=== PATIENT | female | born 1995 | race Caucasian/White ===

== ENCOUNTER 2020-10-24 12:18 | Emergency (ER) | payer OTHER ==
[~2020-10-24] VITALS: Ht 162.6 cm; Wt 64.4 kg
[2020-10-24 12:20] VITALS: BP 138/95
--- NOTE | 2020-10-24 12:40 | NUR ---
PATIENT PRESENTS TO ED WITH RASH TO BILATERAL FOREARM, NECK AND EARS. PT STATES SHE TOOK BENADRYL AND IBUPROFEN . DENIES N/V/D; SKIN IS PINK/RED WITH RASHES; AAOX4 WITH EVEN AND STEADY GAIT; LUNGS CLEAR BL; HR EVEN AND REGULAR; PT DENIES ANY FEVER, CP, SOB, OR COUGH AT THIS TIME; PATIENT STATES PAIN OF 0/10 AT THIS TIME; VSS; PATIENT POSITIONED FOR COMFORT; HOB ELEVATED; BEDRAILS UP X2; BED DOWN. ER MD MADE AWARE OF PT STATUS.
[2020-10-24] MEDS ORDERED: predniSONE 20 MG TAB PO ONE (13:30)
[2020-10-24] MEDS ORDERED: PRED20TA5 PO (13:32)
[2020-10-24] MEDS ORDERED: DIPH25TA53 PO (13:32)
[2020-10-24 13:41] VITALS: BP 138/95
--- NOTE | 2020-10-24 13:42 | NUR ---
Patient discharged with v/s stable. Written and verbal after care instructions given and explained. Patient alert, oriented and verbalized understanding of instructions. Ambulatory with steady gait. All questions addressed prior to discharge. ID band removed. Patient advised to follow up with PMD. Rx of BENADRYL AND PREDNISONE given. Patient educated on indication of medication including possible reaction and side effects. Opportunity to ask questions provided and answered.
== END 2020-10-24 13:42 | disposition home or self-care (01) ==
LOC: MED 12:18
DX: L23.4 Allergic contact dermatitis due to dyes (principal)
CPT/HCPCS: 99283; J7512; Q0163

== ENCOUNTER 2022-04-07 09:24 | Emergency (ER) | payer MEDICAID, OTHER ==
[~2022-04-07] VITALS: Ht 162.6 cm; Wt 63.0 kg
[~2022-04-07 09:24] MED LIST: DIPH25TA53 PO; PRED20TA5 PO
[2022-04-07 09:28] VITALS: BP 144/89
[2022-04-07] MEDS ORDERED: ONDANSETRON 4 MG/2 ML VIAL IVP ONE (10:00)
[2022-04-07] MEDS ORDERED: NACL 0.9% 1,000 ML IV ONE (10:00)
[2022-04-07 10:25] LABS: BASOPHILS # (AUTO) 0.1 K/uL (0.00-0.22); BASOPHILS % (AUTO) 0.8 % (0.0-2.0); EOSINOPHILS # (AUTO) 0.3 K/uL (0-0.4); EOSINOPHILS % (AUTO) 3.8 % (0.0-4.0); HEMATOCRIT 43.4 % (36-48); LYMPHOCYTES % (AUTO) 29.7 % (20.5-51.1); MEAN CORPUSCULAR HEMOGLOBIN 30 pg (27-31); MEAN CORPUSCULAR HGB CONC 35 g/dL (33-37); MEAN CORPUSCULAR VOLUME 85.4 fL (80-94); MONOCYTES # (AUTO) 0.4 K/uL (0.8-1.0); MONOCYTES % (AUTO) 5.5 % (1.7-9.3); NEUTROPHILS % (AUTO) 60.2 % (42.2-75.2); PLATELET COUNT (AUTO) 230 K/uL (140-450); RED BLOOD CELL COUNT(AUTO) 5.08 MIL/uL (4.20-5.40); WHITE BLOOD COUNT (AUTO) 6.6 K/uL (4.8-10.8)
[2022-04-07 10:38] LABS: ALBUMIN 3.8 g/dL (3.4-5.0); ANION GAP 14.6 (8-16); ASPARTATE AMINOTRANSFERASE 13 U/L (15-37); CARBON DIOXIDE 25.4 mmol/L (21-32); CHLORIDE 106 mmol/L (98-107); CREATININE 0.7 mg/dL (0.6-1.3); GFR ARICAN-AMERICAN 132 mL/min (>90); GLUCOSE 89 mg/dL (74-106); SODIUM SERUM 142 mmol/L (136-145); TOTAL BILIRUBIN 0.4 mg/dL (0.0-1.0); UREA NITROGEN, BLOOD 6 mg/dL (7-18)
--- NOTE | 2022-04-07 11:11 | NUR ---
26/ PRESENTS TO ED WITH C/O COUGH AND DIZZINESS SINCE YESTERDAY, PATIENT REPORTS COUGHING UP BLOOD YESTERDAY. DENIES RECENT COLD SYMPTOMS, FEVERS, CHILLS OR SICK CONTACTS. TODAY PATIENT C/O EPISODES OF DIZZINESS AND NAUSEA, DENIES PAIN.
[2022-04-07 13:51] VITALS: BP 130/70
--- NOTE | 2022-04-07 13:55 | NUR ---
IV removed, catheter intact and site benign. Applied folded 4x4 gauze and tape to stop bleeding.
--- NOTE | 2022-04-07 13:55 | NUR ---
PATIENT LEFT WITHOUT PAPERWORK OR INSTRUCTIONS, DR ZAMORA AWARE
== END 2022-04-07 13:55 | disposition home or self-care (01) ==
LOC: MED 09:24
DX: R06.02 Shortness of breath (principal); R04.2 Hemoptysis; Z79.899 Other long term (current) drug therapy
CPT/HCPCS: 36415; 71045; 80053; 81002; 81025; 84484; 85025; 85379; 93005; 96361; 96374; 99285; J2405; J7030